=== PATIENT | male | born 1970 | race Caucasian/White ===

== ENCOUNTER 2022-02-16 11:59 | Outpatient (CLI) | payer OTHER ==
[~2022-02-16 11:59] MED LIST: Iopamidol 370 76% 100 ML VIAL ONE
== END 2022-02-16 12:00 | disposition home or self-care (01) ==
LOC: CSHCT 11:59
PROVIDERS: ATTEND Psychiatry & Neurology Neurology
DX: I65.02 Occlusion and stenosis of left vertebral artery (principal); I10 Essential (primary) hypertension
CPT/HCPCS: 70496; 70498